=== PATIENT | male | born 1980 | race Caucasian/White ===

== ENCOUNTER 2023-03-05 21:41 | Emergency (ER) | payer MEDICAID ==
[~2023-03-05] VITALS: Ht 167.6 cm; Wt 95.3 kg
[2023-03-05 21:44] VITALS: BP_SYST 133
[2023-03-05] MEDS ORDERED: ONDANSETRON 4 MG ODT TAB PO ONE (22:45)
[2023-03-06] MEDS ORDERED: KETOROLAC TROMETHAMINE 60 MG/2 ML VIAL IM ONE (00:30)
[2023-03-06] MEDS ORDERED: IBUP-1971 PO (00:32)
[2023-03-06] MEDS ORDERED: LOPE2CAP PO (00:32)
[2023-03-06] MEDS ORDERED: CIPR500T5 PO (00:32)
[2023-03-06] MEDS ORDERED: ONDA8TAB60 PO (00:32)
[2023-03-06 01:20] VITALS: BP_SYST 133
== END 2023-03-06 01:20 | disposition home or self-care (01) ==
LOC: SED 21:41
DX: R10.13 Epigastric pain (principal); R11.2 Nausea with vomiting, unspecified; R19.7 Diarrhea, unspecified; Z88.2 Allergy status to sulfonamides
CPT/HCPCS: 99283; 96372; Q0162; J1885